=== PATIENT | male | born 1945 | race Caucasian/White ===

== ENCOUNTER 2018-09-24 19:14 | Inpatient (IN) | payer MEDICAID, MEDICARE, OTHER ==
[~2018-09-24] VITALS: Ht 185.4 cm; Wt 98.2 kg
[2018-09-24] MEDS ORDERED: DIPHTH,PERTUSS(ACELL),TET TOX 0.5 ML DISP.SYRIN. VAX IM ONE (19:45)
[2018-09-24] MEDS ORDERED: MUPIROCIN 2 % TOPICAL CREAM 30GM TUBE. TP ONE (19:45)
[2018-09-24] MEDS ORDERED: IV NORMAL SALINE 1000ML BAG 1,000 ML IV ONE ×2 (19:45→21:00)
[2018-09-24 19:52] LABS: BASO % 0 % (0-3); EOS % 0 % (0-3); HEMATOCRIT 36.1 % (39.0-53.0); HEMOGLOBIN 12.3 g/dL (13.0-17.5); LYMPH # 0.4 x10^3/uL (1.0-4.8); LYMPH % 3 % (24-48); MEAN CORPUSCULAR HEMOGLOBIN 34 pg (25-35); MEAN CORPUSCULAR HGB CONC 34 g/dL (31-37); MEAN CORPUSCULAR VOLUME 100 fL (79-100); MONO # 0.8 x10^3/uL (0.0-1.1); MONO % 5 % (0-9); NEUT % 92 % (31-73); PLATELET COUNT 206 x10^3/uL (140-400); RED BLOOD COUNT 3.63 x10^6/uL (4.30-5.70); WHITE BLOOD COUNT 15.1 x10^3/uL (4.0-11.0)
[2018-09-24 20:02] LABS: PROTHROMBIN TIME PATIENT 14.1 SEC (11.7-14.0)
[2018-09-24 20:07] LABS: CALCIUM 8.9 mg/dL (8.5-10.1); CREATININE 1.3 mg/dL (0.7-1.3); GFR 53.8; POTASSIUM 4.8 mmol/L (3.5-5.1)
[2018-09-24 20:12] LABS: ALBUMIN 3.9 g/dL (3.4-5.0); ALBUMIN/GLOBULIN RATIO 1.3 (1.0-1.7); MAGNESIUM 1.6 mg/dL (1.8-2.4); TOTAL BILIRUBIN 0.6 mg/dL (0.2-1.0)
[2018-09-24 20:23] LABS: % BANDS 16 % (0-9); % LYMPHS 1 % (24-48); % MONOS 7 % (0-10); % SEGS 76 % (35-66); PLT ESTIMATE ADEQUATE (ADEQUATE)
--- NOTE | 2018-09-24 20:31 | RAD ---
Exam: Chest one view. Right knee 3 views. Right tibia fib 2 views. Pelvis one view. Left shoulder 3 views INDICATION: Weakness, fall TECHNIQUE: Frontal view of the chest. Frontal, lateral and oblique views of the right knee. Frontal view of the pelvis. Frontal and lateral views of the right tibia and fibula. Frontal view of the left shoulder in internal and external rotation with transscapular Y view. Comparisons: None FINDINGS: CHEST: The cardiomediastinal silhouette and pulmonary vessels are within normal limits. The lung and pleural spaces are clear. Right knee: Bone mineralization is normal. No acute fracture. Soft tissues are unremarkable. There is tricompartmental osteoarthritic change greatest in the lateral compartment with near complete loss of the joint space subchondral sclerosis and marginal osteophytosis. Right tib-fib: Bone mineralization and development of normal. No acute or healed fractures. Soft tissues are unremarkable. Joint spaces are well-maintained. Pelvis: Bone mineralization is normal. No acute or healed fractures. Soft tissues are unremarkable. Joint spaces are well-maintained. Left shoulder: Anterior dislocation at the glenohumeral joint with large fracture fragment of the humeral head which is displaced posteriorly. No other fractures are seen. Soft tissues are unremarkable. IMPRESSION: 1. Anterior left shoulder dislocation with large fracture fragment involving the greater tuberosity of the humerus. 2. No acute cardiopulmonary process. 3. No acute osseous abnormality of the right knee. Degenerative changes described above. 4. No acute osseous abnormality of the right tib-fib 5. No acute osseous abnormality identified the right pelvis. Electronically signed by: Kim Smith MD (09/24/2018 8:29 PM) [facility]
--- NOTE | 2018-09-24 20:44 | PHYS DOC ---
Past Medical History Past Medical History: Arthritis, Hypertension Additional Past Medical Histor: Down's Syndrome Past Medical History Limited due to baseline mentation Additional Past Surgical Histo: ABSCESS ON BACK, KNEE SURGERY Past Surgical History Limited due to baseline mentation Additional Information: Nonsmoker Alcohol Use: None Drug Use: None Social History Limited due to baseline mentation Adult General Chief Complaint Chief Complaint: MECHANICAL FALL HPI HPI 73 y/o male with pmh of Down's Syndrome presents with history of fall while mowing lawn today at approximately 1430. Patient has been guarding left upper arm/shoulder since the fall. Family reports he is not as outgoing as he usually is. Denies known loss of consciousness. Reports he did also scrape up his right knee. Family unsure when patient's last tetanus booster was. History of present illness limited due to patient's baseline mentation. Review of Systems Review of Systems Constitutional: Denies fever or chills Eyes: Denies redness or eye pain HENT: Denies nasal congestion or sore throat Respiratory: Denies cough or shortness of breath Cardiovascular: Denies chest pain or palpitations GI: Denies nausea or vomiting Musculoskeletal: Pain to right knee and left shoulder Integument: Reports abrasion to right knee Neurologic: Denies headache Review of systems limited due to baseline mentation Current Medications Current Medications Current Medications Medications (Trade) Dose Ordered Sig/Osei Start Time Stop Time Status Last Admin Dose Admin Diphtheria/ Tetanus/Acell Pertussis (Boostrix) 0.5 ml ONCE ONCE 09/24/18 19:45 09/24/18 19:46 DC 09/24/18 20:28 0.5 ML Etomidate (Amidate) 10 mg 1X ONCE 09/24/18 21:00 09/24/18 21:01 DC 09/24/18 22:40 10 MG Fentanyl Citrate (Fentanyl 2ml Vial) 50 mcg PRN Q2HRS PRN 09/24/18 21:00 09/25/18 06:17 50 MCG Levofloxacin/ Dextrose 150 ml @ 100 mls/hr 1X ONCE 09/24/18 21:00 09/24/18 22:29 DC 09/24/18 21:02 100 MLS/HR Mupirocin (Bactroban) 1 andie 1X ONCE 09/24/18 19:45 09/24/18 19:46 DC 8/16/19 20:28 1 ANDIE Ondansetron HCl (Zofran) 4 mg PRN Q8HRS PRN 09/24/18 21:00 09/25/18 20:59 Piperacillin Sod/ Tazobactam Sod 4.5 gm/Sodium Chloride 100 ml @ 200 mls/hr 1X ONCE 09/24/18 21:00 09/24/18 21:29 DC 09/24/18 22:47 200 MLS/HR Sodium Chloride 500 ml @ 500 mls/hr 1X ONCE 09/24/18 21:00 09/24/18 21:59 DC 09/24/18 22:47 500 MLS/HR Allergies Allergies Allergies Coded Allergies Type Severity Reaction Last Updated Verified bacitracin Allergy Mild breaks out in hives 01/20/13 Yes bacitracin zinc Allergy Mild breaks out in hives 01/20/13 Yes lidocaine Allergy Mild breaks out in hives 01/14/13 Yes neomycin sulfate Allergy Mild breaks out in hives 01/14/13 Yes polymyxin B Allergy Mild breaks out in hives 01/20/13 Yes polymyxin B sulfate Allergy Mild breaks out in hives 01/14/13 Yes pramoxine Allergy Mild breaks out in hives 01/20/13 Yes pramoxine HCl Allergy Mild breaks out in hives 01/14/13 Yes Physical Exam Physical Exam Constitutional: Well developed, well nourished, no acute distress, non-toxic appearance HENT: Normocephalic, atraumatic, oropharynx moist Eyes: PERRL, EOMI, conjunctiva normal, no discharge Neck: Normal range of motion, no midline tenderness, supple Cardiovascular: Heart rate normal, regular rhythm Lungs & Thorax: Bilateral breath sounds clear to auscultation, no wheezing Abdomen: Soft, no tenderness, pelvis stable and nontender Skin: Warm, dry, no erythema, anterior abrasions noted with right knee Back: No midline tenderness, no CVA tenderness Extremities: Pain to left shoulder primarily on ROM, unable to move without pain, CR < 2 sec, right radial pulse +2 Neurologic: Alert and oriented X 2, normal motor function, normal sensory function, no focal deficits noted Psychologic: Affect normal, judgement abnormal Current Patient Data Vital Signs Vital Signs Date Time Temp Pulse Resp B/P (MAP) Pulse Ox O2 Delivery O2 Flow Rate FiO2 09/24/18 22:55 106 16 94 09/24/18 22:40 Nasal Cannula 2.0 09/24/18 22:08 97.5 154/87 Lab Values Laboratory Tests Test 09/24/18 19:40 09/24/18 21:15 White Blood Count 15.1 x10^3/uL (4.0-11.0) H Red Blood Count 3.63 x10^6/uL (4.30-5.70) L Hemoglobin 12.3 g/dL (13.0-17.5) L Hematocrit 36.1 % (39.0-53.0) L Mean Corpuscular Volume 100 fL (79-100) Mean Corpuscular Hemoglobin 34 pg (25-35) Mean Corpuscular Hemoglobin Concent 34 g/dL (31-37) Red Cell Distribution Width 13.0 % (11.5-14.5) Platelet Count 206 x10^3/uL (140-400) Neutrophils (%) (Auto) 92 % (31-73) H Lymphocytes (%) (Auto) 3 % (24-48) L Monocytes (%) (Auto) 5 % (0-9) Eosinophils (%) (Auto) 0 % (0-3) Basophils (%) (Auto) 0 % (0-3) Neutrophils # (Auto) 14.0 x10^3/uL (1.8-7.7) H Lymphocytes # (Auto) 0.4 x10^3/uL (1.0-4.8) L Monocytes # (Auto) 0.8 x10^3/uL (0.0-1.1) Eosinophils # (Auto) 0.0 x10^3/uL (0.0-0.7) Basophils # (Auto) 0.0 x10^3/uL (0.0-0.2) Segmented Neutrophils % 76 % (35-66) H Band Neutrophils % 16 % (0-9) H Lymphocytes % 1 % (24-48) L Monocytes % 7 % (0-10) Platelet Estimate Adequate (ADEQUATE) Prothrombin Time 14.1 SEC (11.7-14.0) H Prothrombin Time INR 1.1 (0.8-1.1) Activated Partial Thromboplast Time 32 SEC (24-38) Sodium Level 141 mmol/L (136-145) Potassium Level 4.8 mmol/L (3.5-5.1) Chloride Level 105 mmol/L (98-107) Carbon Dioxide Level 21 mmol/L (21-32) Anion Gap 15 (6-14) H Blood Urea Nitrogen 30 mg/dL (8-26) H Creatinine 1.3 mg/dL (0.7-1.3) Estimated GFR (Cockcroft-Gault) 53.8 BUN/Creatinine Ratio 23 (6-20) H Glucose Level 204 mg/dL (70-99) H Lactic Acid Level 3.8 mmol/L (0.4-2.0) H Calcium Level 8.9 mg/dL (8.5-10.1) Magnesium Level 1.6 mg/dL (1.8-2.4) L Total Bilirubin 0.6 mg/dL (0.2-1.0) Aspartate Amino Transferase (AST) 29 U/L (15-37) Alanine Aminotransferase (ALT) 31 U/L (16-63) Alkaline Phosphatase 53 U/L (46-116) Ammonia < 10 mcmol/L (11-34) L Creatine Kinase 548 U/L (39-308) H Creatine Kinase MB (Mass) 3.6 ng/mL (0.0-3.6) Creatine Kinase MB Relative Index 0.7 % (0-4) Troponin I Quantitative < 0.017 ng/mL (0.000-0.055) Total Protein 7.0 g/dL (6.4-8.2) Albumin 3.9 g/dL (3.4-5.0) Albumin/Globulin Ratio 1.3 (1.0-1.7) Urine Collection Type Unknown Urine Color Kinza Urine Clarity Clear Urine pH 5.0 Urine Specific [place] 1.025 Urine Protein Negative mg/dL (NEG-TRACE) Urine Glucose (UA) 250 mg/dL (NEG) Urine Ketones (Stick) 15 mg/dL (NEG) Urine Blood Negative (NEG) Urine Nitrite Negative (NEG) Urine Bilirubin Small (NEG) Urine Urobilinogen Dipstick 1.0 mg/dL (0.2 mg/dL) Urine Leukocyte Esterase Negative (NEG) Urine RBC 0 /HPF (0-2) Urine WBC 0 /HPF (0-4) Urine Squamous Epithelial Cells Occ /LPF Urine Bacteria 0 /HPF (0-FEW) Urine Hyaline Casts Few /HPF Urine Mucus Mod /LPF Laboratory Tests 09/24/18 19:40 Laboratory Tests 09/24/18 19:40 EKG EKG @1941 Sinus tachycardia at 110bpm, NO ST elevation, QRS 84, QT/QTc 308/422ms Radiology/Procedures Radiology/Procedures PROCEDURE: Chest one view. Right knee 3 views. Right tibia fib 2 views. Pelvis one view. Left shoulder 3 views INDICATION: Weakness, fall TECHNIQUE: Frontal view of the chest. Frontal, lateral and oblique views of the right knee. Frontal view of the pelvis. Frontal and lateral views of the right tibia and fibula. Frontal view of the left shoulder in internal and external rotation with transscapular Y view. Comparisons: None FINDINGS: CHEST: The cardiomediastinal silhouette and pulmonary vessels are within normal limits. The lung and pleural spaces are clear. Right knee: Bone mineralization is normal. No acute fracture. Soft tissues are unremarkable. There is tricompartmental osteoarthritic change greatest in the lateral compartment with near complete loss of the joint space subchondral sclerosis and marginal osteophytosis. Right tib-fib: Bone mineralization and development of normal. No acute or healed fractures. Soft tissues are unremarkable. Joint spaces are well-maintained. Pelvis: Bone mineralization is normal. No acute or healed fractures. Soft tissues are unremarkable. Joint spaces are well-maintained. Left shoulder: Anterior dislocation at the glenohumeral joint with large fracture fragment of the humeral head which is displaced posteriorly. No other fractures are seen. Soft tissues are unremarkable. IMPRESSION: 1. Anterior left shoulder dislocation with large fracture fragment involving the greater tuberosity of the humerus. 2. No acute cardiopulmonary process. 3. No acute osseous abnormality of the right knee. Degenerative changes described above. 4. No acute osseous abnormality of the right tib-fib 5. No acute osseous abnormality identified the right pelvis. Electronically signed by: Kim Smith MD (09/24/2018 8:29 PM) [facility] PROCEDURE: CT HEAD AND CERVICAL SPINE WO Exam: CT head INDICATION: Fall TECHNIQUE: Sequential axial images through the head were obtained without the administration of IV contrast. Comparisons: None FINDINGS: Head: No focal parenchymal lesion or hemorrhage is identified. There is no midline shift or sulcal effacement. Extensive patchy hypodensity within the periventricular white matter, likely representing chronic ischemic change. The ventricular system is within normal limits without compression hydrocephalus. The basal cisterns are well maintained. Mucosal thickening within the left maxillary sinus and ethmoid air cells bilaterally. No acute fractures. Cervical spine: Vertebral body heights and alignment are well-maintained. Fracture through the cervical spine is not identified. Multilevel degenerative disc disease throughout cervical spine greatest at C4-C5, C5-C6 and C6-C7. Mild bilateral neural foraminal stenosis secondary to uncovertebral and facet arthropathy at C4-C5, C6-C7, C7-T1. Visualized paraspinal soft tissues are unremarkable. IMPRESSION: 1. Patchy hypodensities within the periventricular white matter, likely chronic ischemic change however age-indeterminate on this study. MRI would better evaluate. No sequela of trauma identified within the head 2. negative CT C-spine for acute traumatic injury. 3. Sinus disease described above. Exposure: One or more of the following in the visualized dose reduction techniques were utilized for this examination: 1. Automated exposure control 2. Adjustment of the MA and/or KV according to patient size Use of iterative of reconstructive technique Electronically signed by: Kim Smith MD (09/24/2018 8:41 PM) [facility] PROCEDURE: SHOULDER 2+V LEFT Left shoulder AP and scapula Y x-rays 2 views HISTORY: Status post reduction of a dislocation under sedation. COMPARISON: Shoulder x-rays November 24, 2018. FINDINGS: There has been reduction of the anterior humeral head dislocation since prior x-rays. Additionally there is improved alignment of the acute traumatic lateral humeral head and greater tuberosity fracture with persistent mild distraction of the fragment from the humeral head, the location of fracture likely increases the probability of rotator cuff tendon injury. Arthritic change AC joint again noted. IMPRESSION: Reduction of the humeral head dislocation. Humeral head fracture as described above. Electronically signed by: Yo Adame MD (09/24/2018 10:54 PM) [facility] Course & Med Decision Making Course & Med Decision Making Pertinent Labs and Imaging studies reviewed. (See chart for details) Patient with pmh of Down's Syndrome presents with report of fall at home while mowing the lawn. Pain to left shoulder. Unclear why patient fell. EKG stable. Labs obtained and posted to chart. Lactic acid significantly elevated. WBC elevation and bandemia also noted. IVF hydration given for sepsis bolusing. Empiric antibiotics given. CXR without acute process. CT head/cervical spine stable. Pelvis XR and right knee XR stable. UA without signs of infection. Unclear source of infection. Magnesium replaced. XR of left shoulder with findings consistent for fracture/dislocation. Moderate sedation performed with successful reduction of shoulder. Patient requiring admission for further evaluation and treatment. Discussed with Dr. Wang (PCP) who is in agreement with admission. Orthopedic referral provided. Discussed findings and plan with patient and family, who acknowledge understanding and agreement. Dragon Disclaimer Dragon Disclaimer This electronic medical record was generated, in whole or in part, using a voice recognition dictation system. Splinting Splinting : Location: left shoulder Pre-Made Type: Shoulder immobilizer Pre-Proc Neuro Vasc Exam: normal Post-Proc Neuro Vasc Exam: normal, unchanged from pre-exam Joint Reduction Joint Reduction : Joint Reduction Site: shoulder (L) Conscious Sedation: Yes Reduction Attempts: 1 Pre-Procedure NV Exam: Yes Post-Procedure NV Exam: Yes Post Joint Reduction Film: joint reduced Additional Procedures Progress Moderate Sedation: Written consent obtained. Time out performed. Hand hygiene utilized. Sedation performed with 10mcg of Fentanyl and 10mg of Etomidate. Traction/Counter Traction utilized with interval reduction of left shoulder. Patient tolerated procedure well and without difficulty. RISKS/ALTERNATIVES Risks/Alternatives Risks and alternatives of this type of sedation and procedure discussed with: RISK/ALTERNATIVES: Sig. Other (Sister: MALACHI) H & P ON CHART H & P H & P on chart and reviewed for co-morbid conditions and appropriate labs. H&P ON CHART: Yes STATUS PREG STATUS ASSESSED: N/A MEDS/ALLERGIES REVIEWED Meds/Allergies Reviewed Medications and Allergies including time and route of recently administered narcotics and sedatives. MEDS/ALLERGIES REVIEWED: Yes ASA RATING ASA RATING: II AIRWAY ASSESSMENT Airway Assessment Airway patency, oral function limitations, presence of caps, crowns, dentures, partials, and ability to extend neck assessed. AIRWAY ASSESSMENT: Yes MALLAMPATI SCORE MALLAMPATI SCORE: III PRE-SEDATION ASSESSMENT PRE-SEDATION ASSESSMENT: Yes Departure Departure Impression: Primary Impression: Severe sepsis Additional Impressions: Fracture dislocation of left shoulder joint Hypomagnesemia Knee contusion Disposition: ADMITTED INPATIENT Admitting Physician: Zeyad Wang Condition: GUARDED Referrals: ZEYAD WANG MD (PCP) Critical Care Time Critical care time was 30 minutes which includes time at bedside, spent in discussion of patient's care with specialists and/or family members, with interpretation of laboratory and/or radiological studies and is exclusive of procedures. Date and Time of Reassessment Date: Sep 24, 2018 Time: 21:49 Fluid Challenge Is the fluid challenge complet: No IBW Target Volume Used: No BMI > 30: No Vital Signs Vital Signs: Vital Signs Date Time Temp Pulse Resp B/P (MAP) Pulse Ox O2 Delivery O2 Flow Rate FiO2 09/24/18 22:55 106 16 94 09/24/18 22:40 Nasal Cannula 2.0 09/24/18 22:08 97.5 154/87 Temperature Source: Oral Respirations Respiratory Effort: Normal Respiratory Pattern: Normal Cardiovascular Pulse Rhythm: Regular Heart: Nml rate, reg. rhythm (Tachycardia), No rubs, clicks or gallop Capillary Refil Capillary Refill: Rt Hand < 3 seconds Peripheral Pulse Pulse Location: Radial Pulse Strength: Normal (2+) Pulse Assessment Method: Palpation Integumentary Skin: Warm, Dry, No Rashes Skin Moisture: Dry Skin Turgor: Normal Skin Color: warm, dry Fingernail Color: WNL Problem Qualifiers Additional Impressions: Fracture dislocation of left shoulder joint Encounter type: initial encounter Fracture type: closed Qualified Codes: S42.92XA - Fracture of left shoulder girdle, part unspecified, initial encounter for closed fracture Knee contusion Encounter type: initial encounter Laterality: right Qualified Codes: S80.01XA - Contusion of right knee, initial encounter SANDRITA RIVERA DO Sep 24, 2018 20:43
[2018-09-24] MEDS ORDERED: fentaNYL PF VIAL 100 MCG/2 ML VIAL IV ONE ×2 (20:45→21:00)
[2018-09-24] MEDS ORDERED: ONDANSETRON PF 4 MG/2 ML VIAL. IV PRN (21:00)
[2018-09-24] MEDS ORDERED: ETOMIDATE 20 MG/10 ML VIAL. IV ONE (21:00)
[2018-09-24] MEDS ORDERED: IV NORMAL SALINE 500ML BAG 500 ML IV ONE (21:00)
[2018-09-24] MEDS ORDERED: PIPERACILLIN/TAZOBACTAM 4.5 GM in IV NORMAL SALINE 100ML 100 ML IV ONE (21:00)
[2018-09-24] MEDS ORDERED: fentaNYL PF VIAL 100 MCG/2 ML VIAL IV PRN (21:00)
[2018-09-24 21:36] LABS: BILIRUBIN,URINE SMALL (NEG); CLARITY,URINE CLEAR; COLOR,URINE AMBER; NITRITE,URINE NEGATIVE (NEG); PROTEIN,URINE NEGATIVE (NEG-TRACE)
[2018-09-24 21:47] LABS: BACTERIA,URINE 0 /HPF (0-FEW); HYALINE CASTS, URINE FEW /HPF; RBC,URINE 0 /HPF (0-2); SQUAMOUS EPITHELIAL CELL,UR OCC /LPF; WBC,URINE 0 /HPF (0-4)
[2018-09-24 22:08] VITALS: BP 154/87
--- NOTE | 2018-09-24 22:57 | RAD ---
Left shoulder AP and scapula Y x-rays 2 views HISTORY: Status post reduction of a dislocation under sedation. COMPARISON: Shoulder x-rays November 24, 2018. FINDINGS: There has been reduction of the anterior humeral head dislocation since prior x-rays. Additionally there is improved alignment of the acute traumatic lateral humeral head and greater tuberosity fracture with persistent mild distraction of the fragment from the humeral head, the location of fracture likely increases the probability of rotator cuff tendon injury. Arthritic change AC joint again noted. IMPRESSION: Reduction of the humeral head dislocation. Humeral head fracture as described above. Electronically signed by: Yo Adame MD (09/24/2018 10:54 PM) [facility]
[2018-09-24 23:40] VITALS: BP 132/76
[2018-09-25 03:25] VITALS: BP 108/64
[2018-09-25 07:52] VITALS: BP 87/45
--- NOTE | 2018-09-25 07:53 | PDOC ---
PROGRESS NOTES Subjective Subjective Problems overnight: Shoulder fracture dislocation left reduced in ER Objective Vital Signs Vital Signs Date Time Temp Pulse Resp B/P (MAP) Pulse Ox O2 Delivery O2 Flow Rate FiO2 09/25/18 03:25 97.9 93 18 108/64 (79) 94 Room Air 97.9 09/24/18 22:40 2.0 Physical Exam Can move fingers and wrist distal neurovascular status intact tenderness as expected at shoulder immobilizer well fitting Labs Laboratory Tests Test 09/24/18 19:40 09/24/18 21:15 09/25/18 01:30 White Blood Count 15.1 x10^3/uL (4.0-11.0) Red Blood Count 3.63 x10^6/uL (4.30-5.70) Hemoglobin 12.3 g/dL (13.0-17.5) Hematocrit 36.1 % (39.0-53.0) Mean Corpuscular Volume 100 fL (79-100) Mean Corpuscular Hemoglobin 34 pg (25-35) Mean Corpuscular Hemoglobin Concent 34 g/dL (31-37) Red Cell Distribution Width 13.0 % (11.5-14.5) Platelet Count 206 x10^3/uL (140-400) Neutrophils (%) (Auto) 92 % (31-73) Lymphocytes (%) (Auto) 3 % (24-48) Monocytes (%) (Auto) 5 % (0-9) Eosinophils (%) (Auto) 0 % (0-3) Basophils (%) (Auto) 0 % (0-3) Neutrophils # (Auto) 14.0 x10^3/uL (1.8-7.7) Lymphocytes # (Auto) 0.4 x10^3/uL (1.0-4.8) Monocytes # (Auto) 0.8 x10^3/uL (0.0-1.1) Eosinophils # (Auto) 0.0 x10^3/uL (0.0-0.7) Basophils # (Auto) 0.0 x10^3/uL (0.0-0.2) Segmented Neutrophils % 76 % (35-66) Band Neutrophils % 16 % (0-9) Lymphocytes % 1 % (24-48) Monocytes % 7 % (0-10) Platelet Estimate Adequate (ADEQUATE) Prothrombin Time 14.1 SEC (11.7-14.0) Prothromb Time International Ratio 1.1 (0.8-1.1) Activated Partial Thromboplast Time 32 SEC (24-38) Sodium Level 141 mmol/L (136-145) Potassium Level 4.8 mmol/L (3.5-5.1) Chloride Level 105 mmol/L (98-107) Carbon Dioxide Level 21 mmol/L (21-32) Anion Gap 15 (6-14) Blood Urea Nitrogen 30 mg/dL (8-26) Creatinine 1.3 mg/dL (0.7-1.3) Estimated GFR (Cockcroft-Gault) 53.8 BUN/Creatinine Ratio 23 (6-20) Glucose Level 204 mg/dL (70-99) Lactic Acid Level 3.8 mmol/L (0.4-2.0) 0.7 mmol/L (0.4-2.0) Calcium Level 8.9 mg/dL (8.5-10.1) Magnesium Level 1.6 mg/dL (1.8-2.4) Total Bilirubin 0.6 mg/dL (0.2-1.0) Aspartate Amino Transf (AST/SGOT) 29 U/L (15-37) Alanine Aminotransferase (ALT/SGPT) 31 U/L (16-63) Alkaline Phosphatase 53 U/L (46-116) Ammonia < 10 mcmol/L (11-34) Creatine Kinase 548 U/L (39-308) Creatine Kinase MB (Mass) 3.6 ng/mL (0.0-3.6) Creatine Kinase MB Relative Index 0.7 % (0-4) Troponin I Quantitative < 0.017 ng/mL (0.000-0.055) Total Protein 7.0 g/dL (6.4-8.2) Albumin 3.9 g/dL (3.4-5.0) Albumin/Globulin Ratio 1.3 (1.0-1.7) Urine Collection Type Unknown Urine Color Kinza Urine Clarity Clear Urine pH 5.0 Urine Specific [place] 1.025 Urine Protein Negative mg/dL (NEG-TRACE) Urine Glucose (UA) 250 mg/dL (NEG) Urine Ketones (Stick) 15 mg/dL (NEG) Urine Blood Negative (NEG) Urine Nitrite Negative (NEG) Urine Bilirubin Small (NEG) Urine Urobilinogen Dipstick 1.0 mg/dL (0.2 mg/dL) Urine Leukocyte Esterase Negative (NEG) Urine RBC 0 /HPF (0-2) Urine WBC 0 /HPF (0-4) Urine Squamous Epithelial Cells Occ /LPF Urine Bacteria 0 /HPF (0-FEW) Urine Hyaline Casts Few /HPF Urine Mucus Mod /LPF Laboratory Tests Test 09/24/18 19:40 09/24/18 21:15 09/25/18 01:30 White Blood Count 15.1 x10^3/uL (4.0-11.0) Red Blood Count 3.63 x10^6/uL (4.30-5.70) Hemoglobin 12.3 g/dL (13.0-17.5) Hematocrit 36.1 % (39.0-53.0) Mean Corpuscular Volume 100 fL (79-100) Mean Corpuscular Hemoglobin 34 pg (25-35) Mean Corpuscular Hemoglobin Concent 34 g/dL (31-37) Red Cell Distribution Width 13.0 % (11.5-14.5) Platelet Count 206 x10^3/uL (140-400) Neutrophils (%) (Auto) 92 % (31-73) Lymphocytes (%) (Auto) 3 % (24-48) Monocytes (%) (Auto) 5 % (0-9) Eosinophils (%) (Auto) 0 % (0-3) Basophils (%) (Auto) 0 % (0-3) Neutrophils # (Auto) 14.0 x10^3/uL (1.8-7.7) Lymphocytes # (Auto) 0.4 x10^3/uL (1.0-4.8) Monocytes # (Auto) 0.8 x10^3/uL (0.0-1.1) Eosinophils # (Auto) 0.0 x10^3/uL (0.0-0.7) Basophils # (Auto) 0.0 x10^3/uL (0.0-0.2) Segmented Neutrophils % 76 % (35-66) Band Neutrophils % 16 % (0-9) Lymphocytes % 1 % (24-48) Monocytes % 7 % (0-10) Platelet Estimate Adequate (ADEQUATE) Prothrombin Time 14.1 SEC (11.7-14.0) Prothromb Time International Ratio 1.1 (0.8-1.1) Activated Partial Thromboplast Time 32 SEC (24-38) Sodium Level 141 mmol/L (136-145) Potassium Level 4.8 mmol/L (3.5-5.1) Chloride Level 105 mmol/L (98-107) Carbon Dioxide Level 21 mmol/L (21-32) Anion Gap 15 (6-14) Blood Urea Nitrogen 30 mg/dL (8-26) Creatinine 1.3 mg/dL (0.7-1.3) Estimated GFR (Cockcroft-Gault) 53.8 BUN/Creatinine Ratio 23 (6-20) Glucose Level 204 mg/dL (70-99) Lactic Acid Level 3.8 mmol/L (0.4-2.0) 0.7 mmol/L (0.4-2.0) Calcium Level 8.9 mg/dL (8.5-10.1) Magnesium Level 1.6 mg/dL (1.8-2.4) Total Bilirubin 0.6 mg/dL (0.2-1.0) Aspartate Amino Transf (AST/SGOT) 29 U/L (15-37) Alanine Aminotransferase (ALT/SGPT) 31 U/L (16-63) Alkaline Phosphatase 53 U/L (46-116) Ammonia < 10 mcmol/L (11-34) Creatine Kinase 548 U/L (39-308) Creatine Kinase MB (Mass) 3.6 ng/mL (0.0-3.6) Creatine Kinase MB Relative Index 0.7 % (0-4) Troponin I Quantitative < 0.017 ng/mL (0.000-0.055) Total Protein 7.0 g/dL (6.4-8.2) Albumin 3.9 g/dL (3.4-5.0) Albumin/Globulin Ratio 1.3 (1.0-1.7) Urine Collection Type Unknown Urine Color Kinza Urine Clarity Clear Urine pH 5.0 Urine Specific [place] 1.025 Urine Protein Negative mg/dL (NEG-TRACE) Urine Glucose (UA) 250 mg/dL (NEG) Urine Ketones (Stick) 15 mg/dL (NEG) Urine Blood Negative (NEG) Urine Nitrite Negative (NEG) Urine Bilirubin Small (NEG) Urine Urobilinogen Dipstick 1.0 mg/dL (0.2 mg/dL) Urine Leukocyte Esterase Negative (NEG) Urine RBC 0 /HPF (0-2) Urine WBC 0 /HPF (0-4) Urine Squamous Epithelial Cells Occ /LPF Urine Bacteria 0 /HPF (0-FEW) Urine Hyaline Casts Few /HPF Urine Mucus Mod /LPF Assessment Assessment POD# Plan Plan of Care As I discussed with the patient nonoperative treatment expected as the shoulder is now reduced and the greater tuberosity fracture acceptably aligned. I would like to see him back in about 2 weeks at which time we will get repeat x-rays and depending on condition advance activity somewhat. Full consult dictated DEMETRIUS WEISS MD Sep 25, 2018 07:53
--- NOTE | 2018-09-25 08:26 | CONS ---
DATE OF CONSULTATION: 09/25/2018 REQUESTING PHYSICIAN: Dr. Mina Marie. REASON FOR CONSULTATION: Left shoulder fracture dislocation. HISTORY OF PRESENT ILLNESS: The patient is a 73-year-old male with Down syndrome, who fell while mowing lawn yesterday and his family reported that he had been guarding the arm and was just acting differently, brought him into the Emergency Department, he was found to have the shoulder fracture dislocation. His history is somewhat limited due to his baseline mental status, but history is also obtained from chart review. PAST MEDICAL HISTORY: Significant for down syndrome, hypertension and arthritis. PAST SURGICAL HISTORY: Previous knee surgery and treatment of a back abscess. FAMILY HISTORY: Noncontributory. MEDICATIONS: List reviewed. ALLERGIES: INCLUDE BACITRACIN, LIDOCAINE, NEOMYCIN, POLYMYXIN AND PRAMOXINE. SOCIAL HISTORY: Lives at home with family support. Denies smoking, alcohol or drug use. REVIEW OF SYSTEMS: He has not had any loss of consciousness, did have an abrasion to his right knee. Denies any other joint pain. Denies any neck or back pain. He reports that he can see normally and aside from the shoulder pain really has no limitations and was able to walk without any problem. PHYSICAL EXAMINATION: GENERAL: Pleasant, cooperative 73-year-old male, alert and oriented, no acute distress. EXTREMITIES: Tender over the left shoulder, immobilizer is well fitting. Overlying skin is intact as is axillary nerve sensation. He has good motion of bilateral elbows, wrists. He can open and close his hand. Denies any numbness or tingling. He has normal examination of the contralateral shoulder and walks with a normal gait. IMAGING: X-rays show a fracture dislocation of his left shoulder and post-reduction views show the glenohumeral joint to be well reduced and the greater tuberosity fracture overall well aligned with minimal displacement and acceptable appearance. IMPRESSION: Status post left shoulder reduction with greater tuberosity fracture. TREATMENT PLAN: I discussed with him the concerns about his injury and the fact that I do expect nonoperative treatment as the shoulder is back in place and the fracture overall has good alignment. He will continue in the immobilizer, only out of the immobilizer for shower. He can hang the arm down to the side, but no lifting, pushing or pulling. I would like to see him back in about 2 weeks in my office for repeat examination, x-rays and reassessment of his activity status at that time. DEMETRIUS WEISS MD DR: LORELEI/abimbola JOB#: [id number] / [id number]
[2018-09-25 11:18] VITALS: BP 109/64
--- NOTE | 2018-09-25 12:28 | PDOC ---
Provider Note Provider Note [id number] ZEYAD WANG MD Sep 25, 2018 12:28
--- NOTE | 2018-09-25 12:54 | EKG ---
[facility] [address] [place] [address] Test Date: 2018-09-24 Test Time: 19:41:57 Pat Name: WILTON BULLOCK Department: Room: 2 1 Gender: M Enamel Dipper: : 1945 Requested By: SANDRITA RIVERA Order Number: [id number] Reading MD: Slim De La Torre MD Measurements Intervals [place] Rate: 110 P: 63 NE: 92 QRS: 10 QRSD: 84 T: 158 QT: 308 QTc: 422 Interpretive Statements PROBABLE SINUS TACHYCARDIA NON-SPECIFIC ST/T CHANGES Electronically Signed On 09-30-2018 17:30:23 CDT by Slim De La Torre MD
--- NOTE | 2018-09-25 13:41 | HP ---
ADMIT DATE: CHIEF COMPLAINT: Fall. 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 He suffered a fracture dislocation of the proximal humeral head, which was relocated in the ER by the physician. Lactic acid and white count were high and he was felt to possibly be septic and cultures were drawn, IV Zosyn and Levaquin given, but he had no symptoms of any kind prior to the fall and nor since then with no fever or other symptoms. Urine is clear. Chest x-ray is clear. No sign of infection is seen. PAST MEDICAL HISTORY: He takes perhaps lisinopril at home for blood pressure. MEDICATIONS: HE HAS MULTIPLE ALLERGIES LISTED PER THE CHART. No history of diabetes. SOCIAL HISTORY: Lives with his older sister. Nonsmoker, nondrinker, not very physically active. FAMILY HISTORY: Unremarkable. REVIEW OF SYSTEMS: No other problems. OBJECTIVE: ENT: All within normal limits. NECK: No masses, nodes or bruits. LUNGS: Clear. CARDIOVASCULAR: Regular rate. No tachycardia or murmur. EXTREMITIES: He has a large shoulder immobilizer on the left shoulder with diffuse ecchymosis and swelling inferior to the left shoulder area. Legs are normal except for an abrasion below the right knee. NEUROLOGIC: Physiologic, nonfocal. His speech is impaired, but normal for him and mental status is normal for him as well. IMPRESSION: Sepsis, fall with secondary fracture dislocation of the left proximal humeral head. There appears to be no sign of clinical sepsis at this time. Blood sugars are a little high and there is some sugar in the urine indicating he may have undiagnosed diabetes. He is also mildly hypotensive despite taking lisinopril. PLAN: Hold lisinopril. Hemoglobin A1c. No more antibiotics. Orthopedic evaluation for now. EZYAD WANG MD DR: MARIA E/abimbola JOB#: [id number] / [id number]
[2018-09-25 15:40] VITALS: BP 101/50
[2018-09-25 19:25] VITALS: BP 109/55
[2018-09-25] MEDS: HYDROcodone/APAP 5/325MG 1 TAB TABLET PO PRN (20:08)
[2018-09-25 23:25] VITALS: BP 94/49
[2018-09-26 02:07] LABS: HEMOGLOBIN A1C 5.3 % (4.8-5.6)
[2018-09-26 03:25] VITALS: BP 100/55
[2018-09-26] MEDS: HYDROcodone/APAP 5/325MG 1 TAB TABLET PO PRN ×4 (06:13→21:06)
[2018-09-26 07:30] VITALS: BP 116/52
[2018-09-26] MEDS: IBUPROFEN 400 MG TABLET. PO PRN (08:58)
--- NOTE | 2018-09-26 09:58 | PDOC ---
Provider Note Provider Note vss, no temp, looks ok- 1/ bc +, suspect contaminant as he does not look ill- will observe today, pt re walk in ing ZEYAD WANG MD Sep 26, 2018 09:58
[2018-09-26 11:07] VITALS: BP 117/65
--- NOTE | 2018-09-26 14:00 | NUR ---
Pt transferred to room 430. Report called to MAX Delgado. Pt transported via wheelchair with all belongings left with patient at the time of transfer. Pt sister, Mai present during transfer.
--- NOTE | 2018-09-26 14:28 | NUR ---
Received patient transfer from [address] [place] [address]. Tubing Machine Tender agrees with previous nurse head to toe assessment, will continue to monitor patient.
[2018-09-26 15:00] VITALS: BP 124/71
[2018-09-26 19:00] VITALS: BP 126/62
[2018-09-26 23:00] VITALS: BP 138/68
[2018-09-27 03:00] VITALS: BP 137/75
[2018-09-27 07:00] VITALS: BP 145/81
--- NOTE | 2018-09-27 07:58 | PDOC ---
Provider Note Provider Note [id number] ZEYAD WANG MD Sep 27, 2018 07:58
[2018-09-27] MEDS: IBUPROFEN 400 MG TABLET. PO PRN (08:03)
--- NOTE | 2018-09-27 08:58 | DS ---
DATE OF DISCHARGE: 09/27/2018 HOSPITAL SUMMARY: This 73-year-old white male came in after a fall after mowing grass and had a fracture dislocation of his left humeral head. Shoulder was reduced in the ER after the anterior dislocation and the fracture noted to the lateral humeral head and greater tuberosity with mild distraction present. X-rays of the pelvis and chest and head and neck CT scan were unremarkable for any sign of injury. Lab studies were unremarkable with mildly elevated lactic acid at first, which resolved quickly and his hemoglobin A1c was low at 5.3. He does have 1 of 4 positive blood cultures for gram-positive cocci, and identification is pending, but has been no fever or sign of bacteremia at this point. He is comfortably followed as an outpatient after seen by Dr. Scott and shoulder immobilizer placed and Dr. Scott will see him in 2 weeks and followup. FINAL DIAGNOSES: Traumatic fracture and dislocation of the left proximal humerus. OPERATIONS, PROCEDURES, COMPLICATIONS: None. CONSULTATIONS: Dr. Scott. DISPOSITION: He will take ibuprofen 400-600 mg q.i.d. p.r.n. for pain. No other home meds exist, a shoulder immobilizer. ACTIVITY: As tolerated. PROGNOSIS: Guarded. Dr. Scott in 2 weeks. ZEYAD WANG MD DR: MARIA E/nts JOB#: [id number] / [id number]
--- NOTE | 2018-09-27 10:16 | NUR ---
Discharge Note: WILTON BULLOCK Discharge instructions and discharge home medications reviewed with Family Member and a copy given. All questions have been answered and understanding verbalized. The following instructions and handouts were given: information about shoulder fracture and dislocation, follow up appointments, etc. Discontinued lines and drains: IV line in right hand removed, catheter tip intact. Patient discharged to home with self care with sister Mai, wheelchair used for mobility to discharge vehicle.
== END 2018-09-27 10:16 | disposition home or self-care (01) | DRG 563 ==
LOC: ER 19:14 → 6 SOUTH 23:07 → 4 NORTH 09-26 14:27
PROVIDERS: ADMIT Family Medicine; ATTEND Family Medicine
PROC: 0RSKXZZ Reposition Left Shoulder Joint, External Approach (ICD-10-PCS; principal; 2018-09-24)
DX: S42.252A Displaced fracture of greater tuberosity of left humerus, initial encounter for closed fracture (principal); M19.90 Unspecified osteoarthritis, unspecified site; I10 Essential (primary) hypertension; E83.42 Hypomagnesemia; I95.9 Hypotension, unspecified; W18.39XA Other fall on same level, initial encounter; Q90.9 Down syndrome, unspecified; Z88.1 Allergy status to other antibiotic agents; Z88.8 Allergy status to other drugs, medicaments and biological substances; Y93.89 Activity, other specified; Y92.89 Other specified places as the place of occurrence of the external cause; Y99.8 Other external cause status
CPT/HCPCS: 23650; 36415; 70450; 71045; 72125; 72170; 73030; 73562; 73590; 80053; 81001; 82140; 82553; 83036; 83605; 83735; 84484; 85007; 85025; 85610; 85730; 87040; 87077; 87205; 90471; 90715; 93005; 96361; 96365; 96375; 99152; J1956; J2543; J3010; J7030; J7040; 99291-25; G0378